=== PATIENT | female | born 1950 | race Two or more races ===

== ENCOUNTER 2024-10-07 17:00 | Emergency (ER) | payer MEDICARE, SELFPAY ==
[2024-10-07 17:45] VITALS: BP 156/80; PULSE 80; RESP 16; TEMP 36.6; O2SAT 96; BMI 21.4
--- NOTE | 2024-10-07 17:57 | EDNOTE_ITS ---
Upper Respiratory Inf. RME/HPI General Chief Complaint: Flu Like Symptoms Stated Complaint: CONGESTION x 1 MONTH Time Seen by Provider: 10/07/24 17:29 Arrival date/time: 10/07/24 17:00 RME / HPI RME / HPI Narrative: 74-year-old female patient with no significant past medical history, came in for evaluation regarding nasal congestion. Patient is having worsening nasal congestion for the last 1 month getting worse, this time associated with facial pain and congestion. Patient denies any fever denies any sore throat denies any other complaints. Patient tried Sudafed, allergy medication, with no relief. Related Data Previous Rx's ?Medication ?Instructions ?Recorded amoxicillin 875 mg-potassium 1 tab PO BID #14 tabs 10/07/24 clavulanate 125 mg tablet fexofenadine 60 mg-pseudoephedrine 1 tab PO Q12H PRN nasal congestion 10/07/24 ER 120 mg tablet,ext.release,12 hr #14 tabs (Milagro-D 12 Hour) Allergies Allergy/AdvReac Type Severity Reaction Status Date / Time No Known Allergies Allergy Verified 10/07/24 17:04 Review of Systems Review of Systems Narrative Review of Systems: Review of system reviewed and within normal limits except mentioned in HPI ED Exam Narrative Physical exam: VITAL SIGNS: Reviewed. GENERAL APPEARANCE: Alert and interactive, follows commands, no acute distress, HEAD AND FACE: Non-traumatic. ENT: PERRL, pink conjunctivitis, eyelid no trauma, Mucous membrane moist. NECK: Supple, nontender, no nuchal rigidity. CHEST: No tenderness, no crepitus, no paradoxical movement, no retractions. LUNGS: Clear, well ventilated, symmetric, no rales, no wheezing, no ronchi, no stridor, good breath sounds bilaterally. HEART: Regular rate, regular rhythm, no murmur, no gallops. ABDOMEN: Soft, positive bowel sounds, nondistended, no guarding, nontender, no rebound, no masses, RECTAL: Deferred. GENITAL: Deferred. NEUROLOGICAL: Gross motor function intact sensory function intact, Appropriate for age. MUSCULOSKELETAL: low back nontender, full range of motion. EXTREMITIES: Nontender, full range of motion. SKIN: Color pink, dry, no rash, no lacerations, no abrasions, no contusions. LYMPHATICS: Deferred. Course Quality Measures none Orders Category Date Time Status Amoxicillin/Pot Clav 875 [Augmentin 875] Med 10/07/24 17:56 Discontinued 1 tab PO X1 ONE predniSONE Med 10/07/24 17:56 Discontinued 60 mg PO X1 ONE Vital Signs Vital signs: Vital Signs Temperature 97.8 F 10/07/24 17:45 Pulse Rate 80 10/07/24 17:45 Respiratory Rate 16 10/07/24 17:45 Blood Pressure 156/80 H 10/07/24 17:45 Pulse Oximetry (%) 96 10/07/24 17:45 Oxygen Delivery Method Room Air 10/07/24 17:45 Upper Respiratory Infection MDM Narrative MDM Narrative:: 74-year-old female patient with no significant past medical history, came in for evaluation regarding nasal congestion. Patient is having worsening nasal congestion for the last 1 month getting worse, this time associated with facial pain and congestion. Patient denies any fever denies any sore throat denies any other complaints. Patient tried Sudafed, allergy medication, with no relief. Imaging or workup started at this time. Patient plan of care discussed with her, and agrees to start her on antibiotic. Patient data External records reviewed:: None Clinical information provided by:: patient Social determinants that could affect healthcare access:: none Patient has the following chronic illnesses:: None How is presenting disease/condition affected by chronic disease/condition?: no chronic disease Evaluation data The following diagnostics were reviewed and interpreted by me:: other (specify) (None) Lab and/or radiology exams considered but not ordered:: None Interpretation Summary: None Medications / Prescriptions Medications or Prescriptions considered but not ordered:: None Medication administrations:: Medication Administration History Discontinued Medications Amoxicillin/Clavulanate Potassium (Amoxicillin/Pot Clav 875 Tablet) 1 tab PO X1 ONE Stop: 10/07/24 17:57 Last Admin: 10/07/24 18:11 Dose: 1 tab Documented By: DENNIS Prednisone (Prednisone 20 Mg Tablet) 60 mg PO X1 ONE Stop: 10/07/24 17:57 Last Admin: 10/07/24 18:11 Dose: 60 mg Documented By: OA Augmentin and prednisone Consultations Consultation(s) initiated? (list below): No Diagnosis Upper Respiratory Differential Diagnosis: upper respiratory infection, sinusitis and viral infection Most likely diagnosis given after review of the tests above:: Sinusitis Admission Indicated Admission indicated?: not indicated Explain why admission is indicated or not indicated:: Stable Admission Request Was there a request for admission?: No Disposition Plan Disposition Plan: Discharge Discharge Attestation Discharge Attestation: The patient was given an opportunity to ask questions and understood the discharge instructions. Discharge instructions specifically effects, indications for sooner follow up or return to the emergency department, and the expected course of current diagnosis. Patient condition: Stable Discharge Plan Plan Patient Disposition: HOME (Self Care) Disposition Comment: stable Prescriptions/Referrals Prescriptions/Med Rec: New amoxicillin-pot clavulanate 875-125 mg tablet 1 tab PO BID Qty: 14 0RF fexofenadine-pseudoephedrine [Milagro-D 12 Hour] 60-120 mg tablet extended release 12 hr 1 tab PO Q12H PRN (Reason: nasal congestion) Qty: 14 0RF Problem List Clinical Impression: Sinusitis Patient/Caregiver Discharge Instructions Discharge Activity: activity as tolerated Education Materials: Understanding Your Sinuses Additional Instructions: Thank you for the opportunity for serving you today. You are stable for discharged . You are advised to: Follow-up with your PCP in 1 to 2 days Return to ED for worsening of symptoms Increase oral fluids Take medication as prescribed Print Language: Chinese Stand Alone Forms: Rafia Award Info., Patient Portal Info Letter PA/JOSSIE Supervising Physician RACHELLE/JOSSIE Supervising Physician: MD Juilo
[2024-10-07] MEDS: predniSONE 20 MG TABLET 60 MG PO (18:11)
[2024-10-07] MEDS: AMOXICILLIN/POT CLAV 875 TABLET 1 TAB PO (18:11)
== END 2024-10-07 18:54 | disposition home or self-care (01) ==
LOC: SERX 18:59
PROVIDERS: Emergency Provider Emergency Medicine
DX: J32.9 Chronic sinusitis, unspecified (principal)
CPT/HCPCS: 99282; J7512; A9270

== ENCOUNTER → 2024-10-13 | Outpatient (CLI) | payer MEDICARE, SELFPAY ==
[2024-10-13 11:25] LABS: Basophils % (Auto) 1 % (0-2.5); Eosinophils # (Auto) 0.2 Thou/mm3 (0.0-0.5); Eosinophils % (Auto) 5 % (0-10); Hematocrit 36.1 % (36.0-46.0); Hemoglobin 12.5 g/dL (12.0-16.0); Immature Granulocytes % (Auto) 0 % (0-0); Immature Granulocytes Auto 0.01 Thou/mm3 (0.00-0.00); Lymphocytes # (Auto) 1.8 Thou/mm3 (1.0-4.8); Lymphocytes % (Auto) 44 % (10-50); Mean Corpuscular HGB Conc 34.6 g/dl (31.0-37.0); Mean Corpuscular Hemoglobin 32.1 pg (25.0-35.0); Mean Corpuscular Volume 93 fL (80-100); Monocytes # (Auto) 0.5 Thou/mm3 (0.0-0.8); Monocytes % (Auto) 11 % (0-12); Neutrophils # (Auto) 1.6 Thou/mm3 (1.8-7.7); Neutrophils % (Auto) 40 % (37-80); Nucleated Red Blood Cell % 0 /100 WBC (0); Platelet Count 184 Thou/mm3 (140-440); RDW Standard Deviation 42.2 fL (36.4-46.3); Red Blood Count 3.89 Miln/mm3 (4.00-5.20); White Blood Count 4.1 Thou/mm3 (3.6-11.0)
[2024-10-13 11:49] LABS: T4 (Thyroxine) 7.6 mcg/dL (4.5-10.9)
[2024-10-13 12:01] LABS: Glucose Estimated Average 105 mg/dL (80-131); Hemoglobin A1C 5.3 % Hgb (4.8-6.0)
[2024-10-13 12:10] LABS: Alanine Aminotransferase 21 U/L (10-49); Albumin, Serum 4.3 gm/dL (3.4-4.8); Alkaline Phosphatase 103 U/L (46-116); Anion Gap 5 (7-16); Aspartate Amino Transferase 22 U/L (0-34); BUN/Creatinine Ratio 27 Ratio (12-20); Bilirubin,Total 0.6 mg/dL (0.3-1.2); Blood Urea Nitrogen 16 mg/dL (9-23); Calcium 9.7 mg/dL (8.3-10.6); Calcium (Corrected) 9.7 mg/dL (8.5-10.1); Carbon Dioxide 30.3 mMol/L (20.0-31.0); Chloride 108 mMol/L (98-107); Creatinine (Component) 0.6 mg/dL (0.6-1.3); Globulin 2.2 gm/dL (2.3-3.5); Glucose 92 mg/dL (74-106); Osmolality,Calculated 286 (275-295); Potassium 4.3 mMol/L (3.4-5.1); Sodium 143 mMol/L (136-145); Thyroid Stimulating Hormone 2.41 uIU/mL (0.55-4.78); Total Protein 6.5 gm/dL (5.7-8.2); eGFR > 60 See Note
[2024-10-13 12:31] LABS: Cholesterol 114 mg/dL (132-200); HDL Cholesterol 56 mg/dL (40-60); LDL Cholesterol,Calculated 45 mg/dL (0-130); Triglycerides 63 mg/dL (30-150)
== END | disposition home or self-care (01) ==
LOC: COPL 10:27
PROVIDERS: PCP Family Medicine; Referring Provider Family Medicine; Visit Provider Family Medicine
DX: J01.00 Acute maxillary sinusitis, unspecified (principal); R79.9 Abnormal finding of blood chemistry, unspecified
CPT/HCPCS: 36415; 80053; 80061; 83036; 84436; 84443; 85025

== ENCOUNTER 2025-09-14 10:22 | Emergency (ER) | payer MEDICARE, SELFPAY ==
[2025-09-14 10:38] VITALS: BP 127/63; PULSE 81; RESP 16; TEMP 36.7; O2SAT 95; BMI 21.2
--- NOTE | 2025-09-14 10:58 | EDNOTE_ITS ---
ED Dental RME/HPI General Chief complaint: Dental/Oral/Throat Stated complaint: SORE THROAT, NOSE CONGESTED Time Seen by Provider: 09/14/25 10:51 Arrival date/time: 09/14/25 10:22 This is a case of 75-year-old female who came in in the emergency room due to sore throat for 5 days sinus pain nasal congestion postnasal drip no shortness of breath no cough no fever no chills patient states that last year he she had also sinus infection persistence of the symptoms this patient decided to sought consult here in the emergency room Limitations: no limitations Related Data Previous Rx's ?Medication ?Instructions ?Recorded amoxicillin 875 mg-potassium 1 tab PO BID #14 tabs clavulanate 125 mg tablet fexofenadine 60 mg-pseudoephedrine 1 tab PO Q12H PRN n jett congestion 10/07/24 ER 120 mg tablet,ext.release,12 hr #14 tabs (Milagro-D 12 Hour) amoxicillin 875 mg-potassium 1 tab PO BID #20 tabs clavulanate 125 mg tablet fluticasone propionate 50 1 spray intranasal BID #16 g jose 09/14/25 mcg/actuation nasal spray,suspension (Flonase Allergy Relief) lidocaine HCl 2 % mucosal solution 10 ml PO Q4HR PRN m outh pain #100 09/14/25 (Lidocaine Viscous) mL prednisone 20 mg tablet 20 mg PO QDAY 5 days #5 tabs 09/14/25 Allergies Allergy/AdvReac Type Severity Reaction Status Date / Time No Known Allergies Allergy Verified 09/14/25 10:25 Review of Systems Review of Systems Systems Reviewed: All systems reviewed, normal except as documented Past Medical History Social History SMOKING STATUS: Never smoker ED Exam General Limitations: Present no limitations General appearance: Present alert, in no apparent distress and other (Patient is awake alert oriented not in distress nontoxic looking well-hydrated well- nourished) Head Head exam: Present atraumatic, normocephalic and normal inspection Eye Eye exam: Present normal appearance, PERRL and EOMI ENT ENT exam: Present normal exam, normal oropharynx, mucous membranes moist, mucous membranes dry and other (Moderate tenderness on frontal and maxillary sinus nostrils and turbinates were swollen and red no nasal polyp no nasal deviation bilateral tonsils were swollen red but no exudate no drooling of saliva no peritonsillar abscess no muffled voice no hot potato voice ear was) Neck Neck exam: Present normal inspection, full ROM and trachea midline; Absent tenderness, meningismus, lymphadenopathy or thyromegaly Chest Chest inspection: Present normal inspection and symmetric chest wall rise Respiratory Respiratory exam: Present normal lung sounds bilaterally and wheezes (Wheezing both lower lung field no crackles no rales no retraction no stridor); Absent respiratory distress, accessory muscle use or prolonged expiratory phase Cardiovascular Cardiovascular exam: Present regular rate, normal rhythm and normal heart sounds; Absent bradycardia Abdominal Exam Abdominal exam: Present soft and normal bowel sounds; Absent distention, tend erness, guarding, rigidity, diminished bowel sounds, hyperactive bowel sounds or organomegaly Extremities Exam Extremities exam: Present normal inspection and full ROM Back Exam Back exam: Present normal inspection and full ROM Neurological Exam Neurological exam: Present alert, oriented X3, CN II-XII intact, normal gait and reflexes normal; Absent motor sensory deficit Psychiatric Psychiatric exam: Present normal affect and normal mood Skin Skin exam: Present warm, dry, intact, normal color and other (Excellent skin turgor) Course Quality Measures none Vital Signs Vital signs: Vital Signs Temperature 98.1 F 09/14/25 10:38 Pulse Rate 81 09/14/25 10:38 Respiratory Rate 16 09/14/25 10:38 Blood Pressure 127/63 09/14/25 10:38 Pulse Oximetry (%) 95 09/14/25 10:38 Oxygen Delivery Method Room Air 09/14/25 10:38 Oxygen saturation is 95% in room air Dental / Oral MDM Narrative MDM Narrative:: This is a case of 75-year-old female who came in in the emergency room due to sore throat for 5 days sinus pain nasal congestion postnasal drip no shortness of breath no cough no fever no chills patient states that last year he she had also sinus infection persistence of the symptoms this patient decided to sought consult here in the emergency room patient is awake alert oriented not in distress nontoxic looking well-hydrated well-nourished HEENT exam noted ear were normal throat bilateral tonsils were swollen and red but no exudate no peritonsillar abscess no muffled voice no hot potato voice no drooling of saliva patient also noted to have moderate tenderness on the frontal and maxillary sinus nostrils and turbinates were swollen and red but no nasal polyp no nasal deviation lungs sound is clear no wheezing no crackles no rales no retraction no stridor the rest of the physical examination neurological exam is normal and unremarkable based on my physical examination and history patient symptoms suggestive of acute sinus infection and tonsillitis patient will be discharged with Augmentin for both infection and was given also 5-day prednisone with Flonase for sinusitis and lidocaine for sore throat patient will follow-up with PCP in 2 days for reevaluation and for any worsening symptoms or any emergent concern return precaution in the ER is advised Patient was discharged with comfortable condition walking with stable gait. Patient verbalized no further complains explained diagnosis and answered patient question. Patient is comfortable with the proposed management plan including the need to follow up with his/her primary care physician and any specialist if applicable Discussed patient for any urgent condition or worsening sx, He/She needed to go to emergency room immediately or call 911. Patient acknowledge the responsibility to follow up as instructed and to monitor her/his symptoms. For any persistence of the symptoms for more than 3-5 days return precaution advised. Discussed the result of the test and was given printed discharge instruction Patient data External records reviewed:: [facility] previous records Clinical information provided by:: patient Social determinants that could affect healthcare access:: none Patient has the following chronic illnesses:: None How is presenting disease/condition affected by chronic disease/condition?: no chronic disease Evaluation data The following diagnostics were reviewed and interpreted by me:: other (specify) (None) Lab and/or radiology exams considered but not ordered:: None Interpretation Summary: None Medications / Prescriptions Medications or Prescriptions considered but not ordered:: Given Medication administrations:: Given Consultations Consultation(s) initiated? (list below): No Diagnosis Dental Differential Diagnosis: other (Sinusitis bronchitis tonsillitis) Most likely diagnosis given after review of the tests above:: Sinusitis tonsils Admission Indicated Admission indicated?: not indicated Explain why admission is indicated or not indicated:: Not indicate Admission Request Was there a request for admission?: No Admission Attestation Admission request attestation: Not in the Disposition Plan Disposition Plan: Discharge Discharge Attestation Discharge Attestation: The patient and all family members were given an opportunity to ask questions and understood the discharge instructions. Discharge instructions specifically effects, indications for sooner follow up or return to the emergency department, and the expected course of current diagnosis. Patient condition: Stable Discharge Plan Plan Patient Disposition: HOME (Self Care) Patient condition on transfer: Stable Prescriptions/Referrals Prescriptions/Med Rec: New amoxicillin-pot clavulanate 875-125 mg tablet 1 tab PO BID Qty: 20 0RF prednisone 20 mg tablet 20 mg PO QDAY 5 Days Qty: 5 0RF lidocaine HCl [Lidocaine Viscous] 2 % solution 10 ml PO Q4HR PRN (Reason: mouth pain) Qty: 100 0RF fluticasone propionate [Flonase Allergy Relief] 50 mcg/actuation spray,suspension 1 spray intranasal BID Qty: 16 0RF Rx Instructions: administer into each nostril No Action amoxicillin-pot clavulanate 875-125 mg tablet 1 tab PO BID Qty: 14 0RF fexofenadine-pseudoephedrine [Milagro-D 12 Hour] 60-120 mg tablet extended release 12 hr 1 tab PO Q12H PRN (Reason: nasal congestion) Qty: 14 0RF Problem List Clinical Impression: Acute tonsillitis, Sinusitis Patient/Caregiver Discharge Instructions Education Materials: Tonsillitis in Adults, ED Sinusitis (Antibiotic Treatment) Additional Instructions: Follow-up with your primary care physician in 2 days for reevaluation and to be referred to ENT specialist for recurrent sinus infection recurrent worsening persistent or any emergent concern return to the emergency room immediately or call 911 take your medication as directed finish the course of antibiotic steam inhalation and warm saline gargle is advised keep hydrated Print Language: Australian Stand Alone Forms: Rafia Award Info., Patient Portal Info Letter PA/AUTOMOTIVE GLASS SPECIALIST Supervising Physician PA/AUT[employer] SPECIALIST Supervising Physician: Dr. Page
== END 2025-09-14 11:44 | disposition home or self-care (01) ==
LOC: SERX 11:22
PROVIDERS: Emergency Provider Family Medicine; PCP Family Medicine
DX: J03.90 Acute tonsillitis, unspecified (principal); J32.9 Chronic sinusitis, unspecified
CPT/HCPCS: 99281